=== PATIENT | female | born 1965 | race Caucasian/White ===

== ENCOUNTER 2024-10-28 12:36 | Emergency (ER) | payer MEDICAID, OTHER ==
[~2024-10-28] VITALS: Ht 160 cm; Wt 88.1 kg
--- NOTE | 2024-10-28 14:11 | DVH ---
CLINICAL INDICATION: FALL. R/O FRACTURE TECHNIQUE: XY L WRIST 3+ VIEW XRAY Comparison: None FINDINGS/IMPRESSION: : There is no evidence of acute fracture or dislocation. Soft tissues are unremarkable.
--- NOTE | 2024-10-28 14:11 | DVH ---
CLINICAL INDICATION: FALL. R/O FRACTURE TECHNIQUE: XY L SHOULDER 2+ VIEW XRAY Comparison: None FINDINGS/IMPRESSION: : There is no evidence of acute fracture or dislocation. Soft tissues are unremarkable. Degenerative changes of the shoulder.
--- NOTE | 2024-10-28 14:13 | ED.PDOC ---
History of Present Illness HPI Comments 59 year old female presents to the ED for the c/c of a Mechanical Fall injury. Pt states that she has been experiencing Left wrist, elbow and shoulder pain that radiates to her neck for the past 1x week with no alleviating factors at this time. Pt states that she was playing with her grandchildren and tripped over a drawing board. No other associated factors or symptoms at this time. Time Seen by MD: 14:02 Reviewed Notes: Nurses Notes, Medications, Allergies Home Meds Active Scripts Naproxen (Naproxen) 375 Mg Tab, 1 TAB PO BIDPC for 10 Days, #20 TAB 0 Refills Prov:ARNOLDO GRIFFIN Micky NIEVES 10/28/24 Information Source: Patient Mode of Arrival: Ambulatory Severity: Mild Timing: Hours Duration: Since onset, Hours Prehospital treatment: None Past Medical History PAST MEDICAL HISTORY: Denies Surgical History: Unknown [employer] History: Unknown Family History Family History: Unknown Social History Smoker: Non-Smoker Alcohol: Denies ETOH Use Drugs: Denies Drug Use Lives In: Home Constitutional: denies: chills, diaphoresis, fatigue, fever, malaise, sweats, weakness, others EENTM: denies: blurred vision, double vision, ear bleeding, ear discharge, ear drainage, ear pain, ear ringing, eye pain, eye redness, hearing loss, mouth pain, mouth swelling, nasal discharge, nose bleeding, nose congestion, nose pain, photophobia, tearing, throat pain, throat swelling, voice changes, others Respiratory: denies: cough, hemoptysis, orthopnea, SOB at rest, shortness of breath, SOB with excertion, stridor, wheezing, others Cardiovascular: denies: chest pain, dizzy spells, diaphoresis, Dyspnea on exertion, edema, irregular heart beat, left arm pain, lightheadedness, palpitations, PND, syncope, others Gastrointestinal: denies: abdomen distended, abdominal pain, blood streaked bowels, constipated, diarrhea, dysphagia, difficulty swallowing, hematemesis, melena, nausea, poor appetite, poor fluid intake, rectal bleeding, rectal pain, vomiting, others Genitourinary: denies: abnormal vagina bleeding, burning, dyspareunia, dysuria, flank pain, frequency, hematuria, incontinence, pain, , vagina discharge, urgency, others Neurological: denies: dizziness, fainting, headache, left sided numbness, left sided weakness, numbness, paresthesia, pre-existing deficit, right sided numbness, right sided weakness, seizure, speech problems, tingling, tremors, weakness, others Musculoskeletal: reports: others (left arm and shoulder pain); denies: back pain, gout, joint pain, joint swelling, muscle pain, muscle stiffness, neck pain Integumetry: denies: bruises, change in color, change in hair/nails, dryness, laceration, lesions, lumps, rash, wounds, others Allergic/Immunocompromised: denies: Difficulty Healing, Frequent Infections, Hives, Itching, others Hematologic/Lymphatic: denies: anemia, blood clots, easy bleeding, easy bruising, swollen glands, others Endocrine: denies: excessive hunger, excessive sweating, excessive thirst, excessive urination, flushing, intolerance to cold, intolerance to heat, unexplained weight gain, unexplained weight loss, others Psychiatric: denies: anxiety, bipolar disorder, depression, hopeless, panic disorder, schizophrenia, sleepless, suicidal, others All Other Systems: Reviewed and Negative Physical Exam General Appearance: Moderate Distress, Normal HEENT: Normal ENT Inspection, Pharynx Normal, TMs Normal Neck: Full Range of Motion, Non-Tender, Normal, Normal Inspection Respiratory: Chest Non-Tender, Lungs Clear, No Accessory Muscle Use, No Respiratory Distress, Normal Breath Sounds Cardiovascular: No Edema, No JVD, No Murmur, No Gallop, Normal Peripheral Pulses, Regular Rate/Rhythm Breast Exam: Deferred Gastrointestinal: Non Tender, No Pulsatile Mass, Normal Bowel Sounds, Soft Genitalia: Deferred Pelvic: Deferred Rectal: Deferred Extremities: No calf tenderness, Normal capillary refill, Normal inspection, Normal range of motion, Non-tender, No pedal edema Musculoskeletal : Location: Left Extremity Location: Arm (No gross abnormality, Full ROM, Nurovascular sensation intact, No TTP) Apperance: Normal Neurologic: Alert, No Motor Deficits, Normal Affect, Normal Mood, No Sensory Deficits Cerebellar Function: Normal Reflexes: Normal Skin: Dry, Normal Color, Warm Lymphatic: No Adenopathy Was a procedure done? Was a procedure done?: No Differential Dx Considerations may include: Sprain fracture dislocation X-Ray, Labs, Meds, VS Vital Signs Date Time Temp Pulse Resp B/P (MAP) Pulse Ox O2 Delivery O2 Flow Rate FiO2 10/28/24 16:30 98.6 88 17 153/86 (108) 96 98.6 10/28/24 16:30 88 17 96 Room Air 10/28/24 13:00 98.6 88 17 153/86 (108) 96 98.6 Lab Test 10/28/24 13:53 10/28/24 13:29 Range/Units White Blood Count 7.9 4.4-10.8 10^3/uL Red Blood Count 4.32 4.0-5.20 10^6/uL Hemoglobin 13.7 12.2-16.2 g/dL Hematocrit 40.0 36.0-46.0 % Mean Corpuscular Volume 92.6 80.0-100.0 fL Mean Corpuscular Hemoglobin 31.7 28.0-32.0 pg Mean Corpuscular Hemoglobin Concent 34.2 32.0-36.0 g/dL Red Cell Distribution Width 13.1 11.8-14.3 % Platelet Count 261 140-450 10^3/uL Mean Platelet Volume 9.1 6.9-10.8 fL Neutrophils (%) (Auto) 58.5 37.0-80.0 % Lymphocytes (%) (Auto) 34.5 10.0-50.0 % Monocytes (%) (Auto) 5.9 0.0-12.0 % Eosinophils (%) (Auto) 0.7 0.0-7.0 % Basophils (%) (Auto) 0.4 0.0-2.0 % Neutrophils # (Auto) 4.6 1.6-8.6 10 ^3/uL Lymphocytes # (Auto) 2.7 0.4-5.4 10 ^3/uL Monocytes # (Auto) 0.5 0-1.3 10 ^3/uL Eosinophils # (Auto) 0.1 0-0.8 10 ^3/uL Basophils # (Auto) 0 0-0.2 10 ^3/uL Nucleated Red Blood Cells 0.2 % Sodium Level 139 136-145 mmol/L Potassium Level 4.1 3.5-5.1 mmol/L Chloride Level 105 98-107 mmol/L Carbon Dioxide Level 23 20-31 mmol/L Anion Gap 11 5-15 Blood Urea Nitrogen 15 9-23 mg/dL Creatinine 0.77 0.550-1.02 mg/dL Glomerular Filtration Rate Calc 89 >90 mL/min BUN/Creatinine Ratio 19.5 10.0-20.0 Serum Glucose 98 74-106 mg/dL Calcium Level 9.6 8.7-10.4 mg/dL Urine Color Light-yellow Yellow Urine Clarity Clear Clear Urine pH 5.5 5.0-9.0 Urine Specific [place] 1.029 1.001-1.035 Urine Protein Negative Negative Urine Ketones Negative Negative Urine Blood 2+ H Negative /uL Urine Nitrite Negative Negative Urine Bilirubin Negative Negative Urine Urobilinogen Normal Negative mg/dL Urine Leukocyte Esterase Trace Negative /uL Urine RBC 6 0 - 4 /hpf Urine Microscopic WBC 6 H 0-5 /HPF Urine Squamous Epithelial Cells Few <5 /hpf Urine Bacteria None seen None Seen /hpf Urine Glucose Normal Normal mg/dL X-Ray, Labs, Meds, VS Comment 59 year old female presents to the ED for the c/c of a Mechanical Fall injury. Patient arrives alert and oriented, ABC's intact, afebrile, vital signs stable, saturating well in room air CBC was ordered to exclude anemia, blood loss, or infection. BMP was ordered to exclude electrolyte abnormalities, renal failure, dehydra tion, hyperglycemia Urinalysis was ordered to rule out UTI or hematuria. Left Shoulder and Left Wrist X-Ray ordered + neck pain radiating to upper extremity ED Workup: Defer C-Spine imaging given negative by NEXUS criteria Given History, Exam the patient appears to have a cervical radiculopathy. Patient appears to be low risk for complications or other emergent conditions such as anginal equivalent, edwin cervical instability, arterial dissection, osteomyelitis, epidural abscess, central cord syndrome, c-spine fracture, CVA, other spinal emergencies Rx: NSAIDs, outpatient physical therapy evaluation and recommendation for home exercises in the interim Disposition: Discharge. The patient has been given strict return precautions and understands the need to follow up within 48 hours with their primary care provider Patient was given:Toradol IM _. Tolerated medications with no adverse reaction. Additional MDM Review of External, Non-ED records: External records reviewed. Discussion with independent historian (EMS, family) history obtained from the patient/parents (if applicable) at bedside Chronic conditions affecting care: None Social determinants of health affecting care: None Time of 1ST Reevaluation: 14:33 Reevaluation 1ST: Unchanged Patient Education/Counseling: Diagnosis, Treatment Family Education/Counseling: No Family Present SEPSIS Sepsis Screen Physician Orders L Shoulder 2+ View Xray (10/28/24 13:30) L Wrist 3+ View Xray (10/28/24 13:30) Vital Signs Date Time Temp Pulse Resp B/P (MAP) Pulse Ox O2 Delivery O2 Flow Rate FiO2 10/28/24 16:30 98.6 88 17 153/86 (108) 96 98.6 10/28/24 16:30 88 17 96 Room Air 10/28/24 13:00 98.6 88 17 153/86 (108) 96 98.6 Laboratory Tests Test 10/28/24 13:53 White Blood Count 7.9 10^3/uL (4.4-10.8) Departure 1 Departure Time of Disposition: 16:01 Impression: Primary Impression: Cervical radiculopathy Disposition: 01 HOME / SELF CARE / HOMELESS Condition: Stable e-Prescriptions Naproxen (Naproxen) 375 Mg Tab 1 TAB PO BIDPC for 10 Days, #20 TAB 0 Refills Prov: ARNOLDO GRIFFIN NP 10/28/24 Critical Care Note Critical Care Time?: No Stability Stability form required: No Heart Score Heart Score: Heart Score Response (Comments) Value History N/A 0 EKG N/A 0 Age N/A 0 Risk Factors N/A 0 Troponin N/A 0 Total 0 I personally scribed for ARNOLDO GRIFFIN NP ([email or web address]) on 10/28/24 at 14:13. Electronically submitted by John Bynum ([email or web address]). ARNOLDO GRIFFIN NP Oct 28, 2024 14:13
[2024-10-28 14:40] LABS: Hematocrit 40.0 % (36.0-46.0); Hemoglobin 13.7 g/dL (12.2-16.2); Mean Corpuscular Hemoglobin 31.7 pg (28.0-32.0); Mean Corpuscular Volume 92.6 fL (80.0-100.0); Nucleated Red Blood Cells % 0.2 %
[2024-10-28 14:50] LABS: Chloride 105 mmol/L (98-107); Potassium 4.1 mmol/L (3.5-5.1); Sodium 139 mmol/L (136-145)
[2024-10-28 14:51] LABS: Anion Gap 11 (5-15); Calcium 9.6 mg/dL (8.7-10.4); Carbon Dioxide 23 mmol/L (20-31)
[2024-10-28 14:56] LABS: BUN/Creatinine Ratio 19.5 (10.0-20.0); Blood Urea Nitrogen 15 mg/dL (9-23); Glucose 98 mg/dL (74-106)
[2024-10-28 15:51] LABS: Urine Protein, UAD Negative (Negative)
[2024-10-28] MEDS ORDERED: NAPR-957 PO (16:01)
[2024-10-28] MEDS: KETOROLAC TROMETH 30 MG/ML 1ML VIAL IM ONE (16:22)
[2024-10-28 16:30] VITALS: BP 153/86; PULSE 88; RESP 17; TEMP 98.6; O2SAT 96
== END 2024-10-28 16:31 | disposition home or self-care (01) ==
LOC: ER 12:36
DX: M54.12 Radiculopathy, cervical region (principal)
CPT/HCPCS: 36415; 73030; 73110; 80048; 81001; 85025; 96372; 99284; J1885